=== PATIENT | female | born 1950 | race Caucasian/White ===

== ENCOUNTER 2019-02-07 21:33 | Emergency (ER) | payer MEDICARE, MEDICAID, SELFPAY ==
[2019-02-07 21:41] VITALS: BP 146/90; PULSE 72; RESP 20; TEMP 36.6; O2SAT 95
--- NOTE | 2019-02-07 21:45 | DI.RAD.S_ITS ---
PROCEDURE: XR RIBS LT MIN 3V W CXR1V INDICATIONS: fall on left side,pain TECHNIQUE: 2 views of the left ribs were acquired, along with a single view chest. COMPARISON: None. FINDINGS: Surgical changes and devices: None. Bones and chest wall: Probable nondisplaced left eighth and ninth rib fractures. No suspicious bony lesions. Overlying soft tissues appear unremarkable. Lungs and pleura: No pleural effusions or pneumothorax. Lungs appear clear. Mediastinum: Mediastinal contours appear normal. Heart size is normal. IMPRESSION: Probable nondisplaced left eighth and ninth rib fractures. Dictated by: Sherita Cifuentes M.D. on 02/08/2019 at 8:37 Approved by: Sherita Cifuentes M.D. on 02/08/2019 at 8:41
--- NOTE | 2019-02-07 22:01 | ED.FALL ---
HPI - Fall General Chief Complaint: Fall Stated Complaint: FALL, RIB PAIN Time Seen by Provider: 02/07/19 22:01 Source: patient Mode of arrival: ambulatory Limitations: no limitations History of Present Illness HPI Narrative: Patient is a hansa 68-year-old female who presents with left-sided rib pain. She states that she fell while walking the dog. Dog had harness on saw a rabbit pulled and she fell. She denies any shortness of breath. Hurts every time she moves. No loss of consciousness no neck injury no other injuries. MD complaint: fall Fall witnessed: no Review of Systems Review of Systems GENERAL: Denies chills, fatigue, malaise, fever, sweats, travel HEENT: Denies sinus pain, ear pain, sore throat, difficulty swallowing, neck pain RESPIRATORY: see HPI CARDIOVASCULAR: Denies chest pain, palpitations, orthopnea, edema GASTROINTESTINAL: Denies nausea, vomiting, abdominal pain, diarrhea, constipation, melena. : Denies dysuria, frequency, incontinence, hematuria, urinary retention, flank pain. MUSCULOSKELETAL: Denies weakness, joint pain, or bony pain SKIN: No rash, no erythema, no pruritus NEUROLOGIC: Denies weakness, dizziness, headache, numbness, change in speech, confusion PSYCHIATRIC: No concerning psychosocial issues. 12 point review of systems is negative except for those stated above and HPI Exam Initial Vital Signs Initial Vital Signs: Vital Signs Temperature 97.9 F 02/07/19 21:41 Pulse Rate 72 02/07/19 21:41 Respiratory Rate 20 02/07/19 21:41 Blood Pressure 146/90 H 02/07/19 21:41 Pulse Oximetry 95 02/07/19 21:41 GENERAL: Sleeping easily arousable HEENT: Head atraumatic,EOMI, pupils reactive, face symmetric, CARDIOVASCULAR: Regular rate and rhythm without murmurs, rubs or gallops. RESPIRATORY: Breath sounds equal bilaterally, no wheezes rales or rhonchi. Slightly tender left lateral posterior ribs around 6 and 7. No vision no crepitations ABDOMEN: Soft, nontender. Normoactive bowel sounds all 4 quadrants. No guarding or rebound. EXTREMITIES: Normal range of motion, no clubbing or edema. Neurovascularly intact NEUROLOGICAL: Alert and oriented x4.Normal gait and speech. Cranial nerves II through XII grossly intact. SKIN: Warm, dry, no laceration, no petechiae, no rashes or lesions. [facility] Medical History Glaucoma (Acute) Surgical History Status post delivery (04/28/88) Family History (Updated 01/16/15 @ 00:00 by Conversion Provider) Child Age: 41 Diabetes mellitus High cholesterol Father Heart disease Hypertension High cholesterol Mother Heart disease Hypertension Stroke Macular degeneration Social History Smoking Status: Former smoker Family History Child Age: 41 Diabetes mellitus High cholesterol Father Heart disease Hypertension High cholesterol Mother Heart disease Hypertension Stroke Macular degeneration Social History Smoking Status: Former smoker Course Orders Ordered: ED Orders 02/07/19 21:45 XR ribs LT min 3V w CXR1V Stat Vital Signs - 8 hr 02/07/19 21:41 02/07/19 23:15 Temperature 97.9 F Pulse Rate 72 80 Respiratory Rate 20 16 Blood Pressure 146/90 H Blood Pressure [Right Arm] 136/70 Pulse Oximetry 95 96 MDM - Fall Imaging Data Rib x-ray: Attestation: I personally reviewed and interpreted this imaging study as follows: My impression: Rib fracture number nine no displacement no pneumothorax MDM Narrative Medical decision making narrative: Patient is resting comfortably offered pain medication but declines. She is given incentive spirometer and teaching by respiratory. Overall looks well. Discharge Plan Departure Patient Disposition: Home Clinical Impression: Closed rib fracture Qualifiers: Encounter type: initial encounter Rib fracture type: single rib Laterality: left Qualified Code(s): S22.32XA - Fracture of one rib, left side, initial encounter for closed fracture Discharge Date/Time: 02/08/19 00:26 Interventions: ED Discharge Assessment Last Done: 02/08/19 00:26 Instructions: DI for Rib Fracture Activity Restrictions/Additional Instructions: *You have been diagnosed with left-sided rib fracture *What to do: Recommend splinting with a pillow or hand to help with pain. Use incentive spirometer 5-10 times an hour to help prevent pneumonia while awake, until pain was gone *Continue to take medications as directed -Tylenol 650 mg every 4-6 hours as need for pain *Follow up with your primary care provider in 2-3 days at [facility] *Return to ER if you should have increased pain difficulty breathing fever cough or any new, worsening or concerning symptoms
[2019-02-07 23:15] VITALS: BP 136/70; PULSE 80; RESP 16; O2SAT 96
== END 2019-02-08 00:26 | disposition home or self-care (01) ==
PROVIDERS: Emergency Provider Emergency Medicine
DX: S22.32XA Fracture of one rib, left side, initial encounter for closed fracture (principal); W19.XXXA Unspecified fall, initial encounter
CPT/HCPCS: 71101; 99282; 99283